=== PATIENT | male | born 1990 | race Caucasian/White ===

== ENCOUNTER 2024-06-10 14:30 | Emergency (ER) | payer MEDICAID ==
[~2024-06-10] VITALS: Ht 185.4 cm; Wt 100.0 kg
[2024-06-10 14:33] VITALS: O2SAT 99
[2024-06-10 18:39] LABS: BASOPHILS % 0.3 % (0.0-2.0); CHLORIDE 105 mEq/L (98-107); EOSINOPHILS % 1.9 % (0.0-5.0); HEMATOCRIT. 43.5 % (42.0-52.0); LYMPHOCYTES % 29.7 % (20.0-50.0); MEAN CORPUSCULAR HEMOGLOBIN 31.8 pg (28.0-32.0); MEAN CORPUSCULAR HGB CONC 34.4 g/dL (31.0-37.0); MEAN CORPUSCULAR VOLUME 92.7 fL (80.0-94.0); MEAN PLATELET VOLUME 9.1 fl (7.4-10.4); NEUTROPHILS % 62.1 % (40.0-76.0); PLATELET 255 x1000/uL (130-400); POTASSIUM 3.8 mEq/L (3.5-5.1); RED CELL DISTRIBUTION WIDTH 12.7 % (11.6-14.6); SODIUM 139 mEq/L (136-145); WHITE BLOOD COUNT 7.2 x1000/uL (4.5-11.0)
[2024-06-10 18:40] LABS: CALCIUM 10.3 mg/dL (8.7-10.4); CARBON DIOXIDE 24 mEq/L (21-32)
[2024-06-10 18:45] LABS: GLUCOSE 100 mg/dL (70-105); UREA NITROGEN BLOOD 13 mg/dL (9-23)
[2024-06-10 18:46] LABS: TROPONIN I HIGH SENSITIVITY 14 ng/L (3.0-53)
[2024-06-10 18:47] LABS: ALANINE AMINOTRANSFERASE 16 IU/L (10-49); ASPARTATE AMINOTRANSFERASE 36 IU/L (<34); BILIRUBIN DIRECT 0.2 mg/dL (<=3.0); BILIRUBIN TOTAL 0.6 mg/dL (0.1-1.0); PROTEIN TOTAL 7.8 g/dL (6.0-8.3)
[2024-06-10 19:20] VITALS: BP 142/78; PULSE 80; RESP 12; TEMP 36.78072; O2SAT 100
== END 2024-06-10 19:23 | disposition home or self-care (01) ==
LOC: ER 14:30
DX: R07.89 Other chest pain (principal); R42 Dizziness and giddiness
CPT/HCPCS: 36415; 71045; 80048; 80076; 84484; 85025; 93005; 99285